=== PATIENT | male | born 1960 | race Caucasian/White ===

== ENCOUNTER 2021-02-12 21:40 | Emergency (ER) | payer BC, SELFPAY ==
[2021-02-12 23:12] LABS: SARS-CoV-2 RNA PCR Positive (Negative)
--- NOTE | 2021-02-13 08:42 | ED.CPR ---
HPI - CPR General Chief Complaint: Cardiac Arrest/CPR Stated Complaint: AMB Time Seen by Provider: 02/12/21 21:41 Source: family, EMS and RN notes reviewed Mode of arrival: EMS Limitations: other (Pt was intubated.) History of Present Illness complaint: stopped breathing Onset (ago): hour(s) (1) Timing confirmed by: family member Place: home Bystander CPR performed: Yes AED applied by bystander/aerial gunner: No Shock advised: No Initial findings in the field: unresponsive, no respirations and no pulse ROSC in the field: No Associated injuries: No Associated symptoms: other (none per family.) Treatments prior to arrival: intubation, BMV, chest compressions and epinephrine mgs # Related Data Home Medications Medication Instructions Recorded Confirmed Unable to Obtain Home Medications 02/12/21 02/12/21 Allergies Allergy/AdvReac Type Severity Reaction Status Date / Time Unable to Assess Allergy Verified 02/12/21 22:01 Review of Systems Review of Systems: No All systems reviewed & are unremarkable except as noted in HPI and below ROS unobtainable: Yes unobtainable due to endotracheal tube PMFSH Past Medical History Medical History (Updated 02/13/21 @ 09:00 by Kuldeep Hernandez MD) Medical history non-contributory SOB (shortness of breath) Exam Const: Other: Pt was in extremis with ETtube in situ and BMV oxygenation. HENMT: Head: normal to inspection Eyes: Other: Pupils were fixed and dilated. pt was immobile and mildly cyanoticl. Neck: Neck: normal visual inspection Chest: Chest palpation & inspection: normal inspection of the chest Resp: Other: pt intubated and BMV resp and oxygenation. Cardio: Other: Pulseless and asystolic on the monitor. GI: Auscultation: absent bowel sounds Skin: General skin exam: pallor Neuro: Other: Pt was . Extrem: Other: mild cyanosis. Psych: Other: . Course Course Emergency Course: CPR via ACLS protocl was continued in the ED. With no pt response, pt was pronunced . Reevaluation(s) Reevaluation #1: Pt was . Date: 02/12/21 Time: 21:41 MDM - Cardiac Arrest/CPR Differential Diagnosis Differential diagnosis: Likely acute massive pulmonary embolism, acute respiratory failure, acute myocardial infarction, cardiac arrest and sudden cardiac Medical Records Attestation: I reviewed the patient's medical records. Lab Data Labs: Lab Results 02/12/21 Range/Units 22:27 SARS-CoV-2 RNA (RT-PCR) Positive A (Negative) Critical Care Time Critical Care Time Critical Care Time: No Total Critical Care Time: 0 Discharge Plan Discharge Clinical Impression: Sudden cardiac Patient Disposition: Condition: Prescriptions: No Action Unable to Obtain Home Medications RF: 0 Follow-up/Referrals: UNKNOWN,DOCTOR [Primary Care Provider] - Time of Disposition: 21:45
== END 2021-02-13 00:11 | disposition expired ==
PROVIDERS: Emergency Provider Emergency Medicine
DX: I46.9 Cardiac arrest, cause unspecified (principal)
CPT/HCPCS: 92950; 99285; C9803; J0171; U0003; U0005